=== PATIENT | male | born 1980 | race Two or more races ===

== ENCOUNTER 2024-01-15 14:47 | Inpatient (IN) | payer OTHER ==
[2024-01-15 16:42] VITALS: BMI 25.7
[2024-01-15] MEDS ORDERED: ACETAMINOPHEN 325 MG TABLET (FP) PO PRN (20:57)
[2024-01-15] MEDS ORDERED: MAGNESIUM HYDROX 2400MG/30ML ORAL SUSPENSION 30 ML CUP PO PRN (20:57)
[2024-01-15] MEDS ORDERED: BISMUTH SUBSALICYLATE 524 MG/30 ML PO PRN (20:57)
[2024-01-15] MEDS ORDERED: MAG HYDROX/AL HYDROX/SIMETH 30 ML UNIT-DOSE CUP PO PRN (20:57)
[2024-01-15] MEDS ORDERED: NALOXONE HCL 0.4 MG/ML VIAL IM PRN (20:57)
[2024-01-15] MEDS ORDERED: POLYETHYLENE GLYCOL (HEALTHYLAX) 3350 17 GM PACKET PO PRN (20:57)
[2024-01-15] MEDS ORDERED: BENZONATATE 200 MG CAPSULE PO PRN (20:57)
[2024-01-15] MEDS ORDERED: NICOTINE POLACRILEX 2 MG GUM BUC PRN (20:57)
[2024-01-15] MEDS ORDERED: LOPERAMIDE HCL 2 MG CAPSULE PO PRN (20:57)
[2024-01-15] MEDS ORDERED: BENZOCAINE/MENTHOL (CHLORASEPTIC ) LOZENGE MM PRN (20:57)
[2024-01-15] MEDS ORDERED: IBUPROFEN 400 MG TABLET (FP) PO PRN (20:57)
[2024-01-15] MEDS ORDERED: guaiFENesin 600 MG TABLET.ER (FP) PO PRN (20:57)
[2024-01-15] MEDS ORDERED: NALOXONE (NARCAN) HCL 4 MG/0.1 ML SPRAY NS PRN (20:57)
[2024-01-15] MEDS ORDERED: ONDANSETRON *ODT* 4 MG TABLET SL PRN (20:57)
[2024-01-15] MEDS ORDERED: DICYCLOMINE HCL 10 MG CAPSULE PO PRN (20:57)
[2024-01-15] MEDS ORDERED: chlordiazePOXIDE HCL 25 MG CAPSULE PO PRN (21:00)
[2024-01-15] MEDS: cloNIDine HCL 0.1 MG TABLET PO ONE (23:17)
[2024-01-15] MEDS: hydrOXYzine PAMOATE 25 MG CAPSULE (FP) PO PRN (23:27)
[2024-01-15] MEDS: MELATONIN 5 MG TABLETS PO SCH (23:27)
[2024-01-15] MEDS: THIAMINE 100 MG TABLET PO SCH (23:27)
[2024-01-15] MEDS: chlordiazePOXIDE HCL 25 MG CAPSULE PO SCH (23:28)
[2024-01-15] MEDS: METHOCARBAMOL 500 MG TABLET PO PRN (23:31)
[2024-01-16] MEDS: NICOTINE 14 MG/24 HOURS TOPICAL PATCH TD SCH (10:20)
[2024-01-16] MEDS: busPIRone HCL 10 MG TABLET (FP) PO SCH (10:20)
[2024-01-16] MEDS: FLUoxetine HCL 20 MG CAPSULE PO SCH (10:20)
[2024-01-16] MEDS: BENZTROPINE MESYLATE 1 MG TABLET PO SCH (10:20)
[2024-01-16] MEDS: PRENATAL VITAMINS W/ FOLIC ACID TABLET (FP) PO SCH (10:21)
[2024-01-16 11:35] LABS: HEMATOCRIT 42.9 % (35.4-49); HEMOGLOBIN 14.7 GM/dL (11.7-16.9); MCH 30.3 pg (25.7-33.7); MCHC 34.2 g/dl (32.0-35.9); MEAN CELL VOLUME 88.5 fl (80-96); MEAN PLT VOLUME 7.9 fl (7.5-11.1); PLATELET COUNT 273 10^3/uL (134-434); RBC 4.85 M/mm3 (4.00-5.60); WHITE BLOOD COUNT 4.8 K/mm3 (4.0-10.0)
[2024-01-16 11:36] LABS: CHLORIDE 101 mmol/L (98-107); POTASSIUM 3.6 mmol/L (3.5-5.1); SODIUM 136 mmol/L (136-145)
[2024-01-16 11:42] LABS: CALCIUM 9.3 mg/dL (8.5-10.1)
[2024-01-16 11:43] LABS: ALBUMIN 3.4 g/dl (3.4-5.0); ANION GAP 9 mmol/L (4-13); BLOOD UREA NITROGEN 7.5 mg/dL (7-18); CO2 27 mmol/L (21-32); GLUCOSE,RANDOM 139 mg/dL (74-106)
[2024-01-16 11:45] LABS: ALK PHOS 100 U/L (45-117); BILIRUBIN,TOTAL 1.8 mg/dL (0.2-1); SGPT/ALT 56 U/L (13-61)
[2024-01-16 11:46] LABS: CREATININE 0.8 mg/dL (0.55-1.3); SGOT/AST 33 U/L (15-37); TOT PROT 6.4 g/dl (6.4-8.2)
[2024-01-16] MEDS: risperiDONE 2 MG TABLET PO SCH (22:34)
[2024-01-17] MEDS: chlordiazePOXIDE HCL 25 MG CAPSULE PO SCH (05:25)
[2024-01-17] MEDS: ARTIFICIAL TEARS OPHTHALMIC DROPS OD SCH (21:27)
[2024-01-17] MEDS: SUVOREXANT 10 MG TABLET PO PRN (22:16)
[2024-01-18] MEDS ORDERED: chlordiazePOXIDE HCL 10 MG CAPSULE PO PRN
[2024-01-18] MEDS: chlordiazePOXIDE HCL 10 MG CAPSULE PO SCH (04:52)
[2024-01-18] MEDS: amLODIPine BESYLATE 5 MG TABLET (FP) PO ONE (19:43)
[2024-01-19] MEDS: chlordiazePOXIDE HCL 10 MG CAPSULE PO SCH (05:31)
[2024-01-20] MEDS: chlordiazePOXIDE HCL 10 MG CAPSULE PO ONE (06:05)
[2024-01-20] MEDS: IBUPROFEN 600 MG TABLET (FP) PO PRN (22:15)
[2024-01-21 09:00] VITALS: RESP 16
[2024-01-21 12:41] VITALS: BP 145/82; PULSE 88; TEMP 97.5
== END 2024-01-21 15:35 | disposition other institution (70) | DRG 774 ==
LOC: YASAS 14:47 → Y6N 22:41
PROVIDERS: ADMIT Allergy & Immunology; ATTEND Surgery
PROC: HZ2ZZZZ Detoxification Services for Substance Abuse Treatment (ICD-10-PCS; principal; 2024-01-12)
DX: F10.230 Alcohol dependence with withdrawal, uncomplicated (principal); F14.20 Cocaine dependence, uncomplicated; F12.20 Cannabis dependence, uncomplicated; F17.210 Nicotine dependence, cigarettes, uncomplicated; F31.9 Bipolar disorder, unspecified; F19.982 Other psychoactive substance use, unspecified with psychoactive substance-induced sleep disorder; F19.980 Other psychoactive substance use, unspecified with psychoactive substance-induced anxiety disorder; F41.9 Anxiety disorder, unspecified; F20.9 Schizophrenia, unspecified; F25.9 Schizoaffective disorder, unspecified; I10 Essential (primary) hypertension; E11.65 Type 2 diabetes mellitus with hyperglycemia; J45.909 Unspecified asthma, uncomplicated; G47.00 Insomnia, unspecified; R00.0 Tachycardia, unspecified; Z56.0 Unemployment, unspecified; Z59.00 Homelessness unspecified
CPT/HCPCS: 36415; 80053; 80305; 80307; 82962; 83036; 85027; 86780; 87811; 93005; 93010

== ENCOUNTER 2024-01-21 15:11 | Inpatient (IN) | payer OTHER ==
[2024-01-21] MEDS ORDERED: BENZOCAINE/MENTHOL (CHLORASEPTIC ) LOZENGE MM PRN (16:40)
[2024-01-21] MEDS ORDERED: LOPERAMIDE HCL 2 MG CAPSULE PO PRN (16:40)
[2024-01-21] MEDS ORDERED: POLYETHYLENE GLYCOL (HEALTHYLAX) 3350 17 GM PACKET PO PRN (16:40)
[2024-01-21] MEDS ORDERED: P-EPHED 60MG/TRIPROLIDI 2.5MG TABLET PO PRN (16:40)
[2024-01-21] MEDS ORDERED: IBUPROFEN 400 MG TABLET (FP) PO PRN (16:40)
[2024-01-21] MEDS ORDERED: BENZONATATE 200 MG CAPSULE PO PRN (16:40)
[2024-01-21] MEDS ORDERED: hydrOXYzine PAMOATE 25 MG CAPSULE (FP) PO PRN (16:40)
[2024-01-21] MEDS ORDERED: ACETAMINOPHEN 325 MG TABLET (FP) PO PRN (16:40)
[2024-01-21] MEDS ORDERED: IBUPROFEN 600 MG TABLET (FP) PO PRN (16:40)
[2024-01-21] MEDS ORDERED: MAG HYDROX/AL HYDROX/SIMETH 30 ML UNIT-DOSE CUP PO PRN (16:40)
[2024-01-21] MEDS ORDERED: guaiFENesin 600 MG TABLET.ER (FP) PO PRN (16:40)
[2024-01-21] MEDS ORDERED: MAGNESIUM HYDROX 2400MG/30ML ORAL SUSPENSION 30 ML CUP PO PRN (16:40)
[2024-01-21] MEDS: busPIRone HCL 5 MG TABLET PO ONE (21:19)
[2024-01-21] MEDS: ARTIFICIAL TEARS OPHTHALMIC DROPS OU PRN (21:19)
[2024-01-21] MEDS: THIAMINE 100 MG TABLET PO SCH (21:19)
[2024-01-21] MEDS: risperiDONE 2 MG TABLET PO ONE (21:19)
[2024-01-21] MEDS: BENZTROPINE MESYLATE 1 MG TABLET PO ONE (21:21)
[2024-01-21] MEDS ORDERED: MELATONIN 5 MG TABLETS PO SCH (22:00)
[2024-01-22] MEDS: PRENATAL VITAMINS W/ FOLIC ACID TABLET (FP) PO SCH (10:04)
[2024-01-22] MEDS: amLODIPine BESYLATE 5 MG TABLET (FP) PO SCH (10:04)
[2024-01-22] MEDS: busPIRone HCL 10 MG TABLET (FP) PO SCH (10:07)
[2024-01-22] MEDS: BENZTROPINE MESYLATE 1 MG TABLET PO SCH (10:08)
[2024-01-22] MEDS: FLUoxetine HCL 20 MG CAPSULE PO SCH (10:09)
[2024-01-22] MEDS: NICOTINE POLACRILEX 2 MG GUM BUC PRN (10:19)
[2024-01-22] MEDS: METHOCARBAMOL 500 MG TABLET PO PRN (21:09)
[2024-01-22] MEDS: risperiDONE 2 MG TABLET PO SCH (21:09)
[2024-01-24] MEDS: INSULIN ASPART SLIDING SCALE (NOVOLOG) 1 VIAL SQ SCH (17:19)
[2024-01-25] MEDS ORDERED: INSULIN (NOVOLOG) ASPART 100 UNITS/ML 10ML VIAL ONE (16:47)
[2024-01-26] MEDS ORDERED: INSULIN (NOVOLOG) ASPART 100 UNITS/ML 10ML VIAL ONE (06:38)
[2024-01-27] MEDS ORDERED: INSULIN (NOVOLOG) ASPART 100 UNITS/ML 10ML VIAL ONE ×2 (06:49→16:38)
[2024-01-29] MEDS ORDERED: INSULIN (NOVOLOG) ASPART 100 UNITS/ML 10ML VIAL ONE ×2 (06:57→17:02)
[2024-01-30] MEDS ORDERED: INSULIN (NOVOLOG) ASPART 100 UNITS/ML 10ML VIAL ONE ×2 (06:36→16:43)
[2024-01-31] MEDS ORDERED: INSULIN (NOVOLOG) ASPART 100 UNITS/ML 10ML VIAL ONE ×2 (06:29→16:39)
[2024-02-02] MEDS ORDERED: INSULIN (NOVOLOG) ASPART 100 UNITS/ML 10ML VIAL ONE (16:43)
[2024-02-03] MEDS ORDERED: INSULIN (NOVOLOG) ASPART 100 UNITS/ML 10ML VIAL ONE (16:18)
[2024-02-04] MEDS ORDERED: INSULIN (NOVOLOG) ASPART 100 UNITS/ML 10ML VIAL ONE (06:22)
[2024-02-04 07:21] VITALS: TEMP 97.1
[2024-02-04 09:01] VITALS: BP 137/84; PULSE 90; RESP 16
== END 2024-02-04 09:06 | disposition home or self-care (01) | DRG 772 ==
LOC: YASAS 15:11 → Y3NR 15:12 → Y3E 01-22 11:29
PROVIDERS: ADMIT Allergy & Immunology; ATTEND Psychiatry & Neurology Pain Medicine
PROC: HZ42ZZZ Group Counseling for Substance Abuse Treatment, Cognitive-Behavioral (ICD-10-PCS; principal; 2024-01-21)
DX: F10.20 Alcohol dependence, uncomplicated (principal); F14.20 Cocaine dependence, uncomplicated; F12.20 Cannabis dependence, uncomplicated; F17.210 Nicotine dependence, cigarettes, uncomplicated; F25.9 Schizoaffective disorder, unspecified; F31.9 Bipolar disorder, unspecified; F19.282 Other psychoactive substance dependence with psychoactive substance-induced sleep disorder; F19.24 Other psychoactive substance dependence with psychoactive substance-induced mood disorder; F41.9 Anxiety disorder, unspecified; I10 Essential (primary) hypertension; E11.9 Type 2 diabetes mellitus without complications; Z79.4 Long term (current) use of insulin; Z56.0 Unemployment, unspecified
CPT/HCPCS: 82962; 83036